=== PATIENT | male | born 1990 | race Caucasian/White ===

== ENCOUNTER 2018-03-08 21:25 | Emergency (ER) | payer SELFPAY ==
[2018-03-08 21:26] VITALS: BP 125/98; PULSE 109; RESP 16; TEMP 36.1; O2SAT 98; BMI 26.4
--- NOTE | 2018-03-08 21:41 | ED.VISSUMM ---
- ER Visit Summary Date of Service: 03/08/18 Chief Complaint: Rash History of Present Illness: The patient is a 27 M with a rash to his bilateral arms. He was exposed to someone with scabies. He feels tired but otherwise has no systemic symptoms. No fevers. Physical Examination: Scaling excoriated rash to his upper extremities, worse on the right and worse in his antecubital fossa. Test Results: None indicated Emergency Department Course and Treatment: Patient will be treated with permethrin. Skin care discussed. Benadryl as needed. Follow-up with primary care. Treatment Plan: As above Disposition: Discharged Impression: 1. Rash This note was generated with [employer] dictation software. It may contain incorrect words, spelling, and punctuation that were not noted in review of the chart prior to signing ED Disposition - Plan for ED Patient: Chief Complaint: Rash Instructions: ED Scabies Prescriptions: Permethrin [Elimite] 60 gm TP X1 #1 tube Referrals: Marshall Barry DO [Primary Care Provider] -
== END 2018-03-08 21:51 | disposition home or self-care (01) ==
LOC: ED 21:46
PROVIDERS: Emergency Provider Emergency Medicine; Family Provider Family Medicine; PCP Family Medicine
DX: R21 Rash and other nonspecific skin eruption (principal); Z72.0 Tobacco use
CPT/HCPCS: 99282

== ENCOUNTER 2020-03-06 20:56 | Emergency (ER) | payer MEDICAID, SELFPAY ==
[2019-10-02 11:43] VITALS: BMI 27.3
[2020-03-06 20:57] VITALS: BP 146/87; PULSE 121; RESP 17; TEMP 36.6; O2SAT 99; BMI 28.8
--- NOTE | 2020-03-06 21:32 | RAD_ITS ---
STUDY: X-RAY - LEFT HAND, ATTENTION FIRST FINGER REASON FOR EXAM: Male, 29 years old. Laceration on distal anterior part of thumb by machbenjy. TECHNIQUE: 3 view(s) of the finger were obtained. COMPARISON: None. FINDINGS: Normal metacarpal head. Normal metacarpophalangeal joint. Normal proximal phalanx. Normal middle phalanx. Normal distal phalanx. Normal proximal interphalangeal joint. Normal distal interphalangeal joint. RAD/Finger(s) Min 2 Views IMPRESSION: Normal x-ray examination of the finger. Electronically Signed: Zach Bryant MD at 21:59 EDT , Service support ,
[2020-03-06] MEDS: Diphth,Pertuss(Acell),Tet Vac 0.5 ML Vial IM (21:58)
[2020-03-06] MEDS: HYDROcodone Bitartrate/Apap 5/325 Tablet PO (21:58)
--- NOTE | 2020-03-06 22:31 | ED.VISSUMM ---
- ER Visit Summary Date of Service: 03/06/20 Chief Complaint: Laceration History of Present Illness: The patient is a [address] Barry. He is right-hand dominant. His tetanus is not up-to-date. Reports that approximately 2 hours ago he was cutting sticks with a machete when he slipped and cut his left thumb. He reports he has an aching pain is 710 at worst and 6 out of 10 currently. Is worsened by movement relieved by rest. Denies any paresthesias distally. Physical Examination: Vitals: Stable. Afebrile. General: Well-nourished and well-developed. Head: Normocephalic atraumatic. Neck: Supple, no lymphadenopathy. No JVD. Nontender. Cardiovascular: Regular rate and rhythm. No murmurs. Respiratory: No respiratory distress. Clear to auscultation bilaterally. Abdominal: Soft, nontender, nondistended, normal bowel sounds. No guarding, rebound, or peritoneal signs. Back: Nontender. Extremities: 3 cm laceration on the dorsal lateral side of the proximal phalanx of his left thumb. This is a flap laceration. There is no active bleeding. He is neurovascular intact distal this. He has normal sensation light touch and two-point discrimination. Skin: Normal color, no rash. Neurologic: Alert and oriented ?3. Cranial nerves II through XII are intact. Normal strength and sensation. Psych: Normal affect. Test Results: Clinical Impression(s) from Imaging Studies Finger X-Ray 03/06/20 21:32 IMPRESSION: Normal x-ray examination of the finger. Electronically Signed: Zach Bryant MD at 21:59 EDT , Service support , Emergency Department Course and Treatment: Patient had his tetanus updated. He was treated with [place] for pain. Had a prolonged discussion with him and he is refused repair of this. Treatment Plan: Patient will be discharged instructions to follow-up with Dr. Barry in 2 days for a wound check. Instructed to keep the area clean, dry, and covered. Return to the emergency department for any worsening symptoms. Disposition: To home in improved and stable condition. Impression: 1. Laceration left thumb, 3 cm, not repaired. This note was generated with [employer] dictation software. It may contain incorrect words, spelling, and punctuation that were not noted in review of the chart prior to signing ED Disposition - Plan for ED Patient: Disposition: Home or Assisted Living Instructions: ED Laceration Small or Superficial Not Stitched Referrals: Marshall Barry DO [Primary Care Provider] - 3-5 Days
== END 2020-03-06 22:59 | disposition home or self-care (01) ==
LOC: ED 21:58
PROVIDERS: Emergency Provider Emergency Medicine; PCP Family Medicine
DX: S61.012A Laceration without foreign body of left thumb without damage to nail, initial encounter (principal); W26.8XXA Contact with other sharp object(s), not elsewhere classified, initial encounter; Y93.9 Activity, unspecified; Y92.9 Unspecified place or not applicable; F17.200 Nicotine dependence, unspecified, uncomplicated
CPT/HCPCS: 73140; 90715; 99281; 99283

== ENCOUNTER 2022-10-26 21:17 | Emergency (ER) | payer MEDICAID, SELFPAY ==
[2022-10-26 21:20] VITALS: BP 144/77; PULSE 92; RESP 18; TEMP 36.6; O2SAT 99; BMI 30.9
--- NOTE | 2022-10-26 21:27 | EKG12_ITS ---
Test Reason : CP Blood Pressure : / mmHG Vent. Rate : 090 BPM Atrial Rate : 090 BPM P-R Int : 142 ms QRS Dur : 096 ms QT Int : 344 ms P-R-T Axes : 039 011 025 degrees QTc Int : 420 ms Normal sinus rhythm with sinus arrhythmia Normal ECG Confirmed by DAVEY CUTLER, TETE ([id number]), senior editor CLIFTON PORRAS ([id number]) on 10/30/2022 12:35:34 PM Referred By: DEDE Confirmed By:TTEE MARISCAL MD
--- NOTE | 2022-10-26 21:28 | EDS_ITS ---
HPI History of Present Illness Chief Complaint: Chest Pain Narrative Narrative: 32-year-old male with no significant past medical history presenting with chest pain. He states it feels like a pinching in the back of his sternum. Patient states he was working around [employer] today. The pain started about 7:30 PM. Patient denies any fever, chills, body aches. Patient denies a cough. Is not short of breath. She has no history of cardiac disease. He is a heavy smoker but denies history of COPD. 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 He describes it as a 4-day event. Apparently was with a friend who is an RN who stated she thought he was having a heart attack. He never got seen for this. He is never followed up for this. 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 No recent travel, recent immobilization, history of DVT/PE, cancer in him, exogenous hormones. PFSH PFSH Home Medications naproxen 500 mg tablet (Naprosyn) 500 mg PO BID PRN pain #20 tabs 10/26/22 [Rx Last Taken Unknown] Allergy/AdvReac Type Severity Reaction Status Date / Time Penicillins Allergy Unknown Verified 10/26/22 21:28 Social History Smoking Status: Current every day smoker tobacco type: cigarettes ROS ROS ED Constitutional Constitutional ED: Denies chills or fever(s) Eyes Eyes: Denies blurry vision or change in vision ENT ENT ED: Denies rhinorrhea or sore throat Cardiovascular Cardiovascular: Reports as per HPI Respiratory/Chest Respiratory/Chest: Denies cough or dyspnea Gastrointestinal Gastrointestinal: Denies abdominal pain or constipation Genitourinary Genitourinary ED: Denies dysuria or hematuria Musculoskeletal Musculoskeletal: Denies arthralgias or back pain Integumentary Denies abscess or Abrasions Neurologic Neurologic: Denies headache(s) or paresthesias Psychiatric Psychiatric: Denies anxiety or depression EXAM Physical Exam Const Vital Signs: 10/26/22 21:20 10/26/22 21:38 10/26/22 21:41 Temperature 97.8 F Temperature Source Temporal Pulse Rate 92 Respiratory Rate 18 Respiratory Effort Normal Blood Pressure 144/77 H Blood Pressure Mean 99 Pulse Ox 99 97 Oxygen Delivery Method Room Air Room Air Positive well nourished General Appearance ED: NAD HEENT Reports moist mucous membranes Eyes PERRL and EOMs intact bilaterally Resp normal respiratory effort and clear to auscultation bilaterally Auscultation: Negative for rales, rhonchi or wheezes Cardio regular rate and regular rhythm GI normal to inspection, nondistended, normoactive bowel sounds Neuro oriented x3 Motor Exam: strength 5/5 throughout Psych mental status grossly normal Skin no rashes or lesions noted Heart Score History: Slightly/Non-Suspicious ECG: Normal Risk Factors: No Risk Factors Troponin: </= Normal Limit Score: 0 MDM MDM MDM Narrative Medical decision making narrative: Patient presenting with retrosternal chest pain. He states he was around mold today and he think this is why he has the pain. He has not had a fever. Does not feel short of breath. No cardiac history. No history of DVT/PE and no risk factors. Vital signs are stable and he is afebrile. Patient given IV Toradol. I do not suspect this is cardiac in nature but I will obtain a CBC to assess for leukocytosis, hemoglobin, platelets, differential. BMP to assess renal function, electrolytes, glucose, anion gap. High-sensitivity troponin and chest x-ray as well as EKG will be obtained as well. EKG is normal sinus rhythm with a ventricular rate of 90 bpm without sign of ischemia. Chest x-ray my int erpretation is no acute cardiopulmonary process. The radiologist interprets this and agrees. CBC shows slight leukocytosis at 13.6 without a left shift. BMP unremarkable. High-sensitivity opponent is 9. Patient HEART score is 0. I do not believe he has a delta troponin. Patient counseled on return precautions. He is given follow-up. Impression: 1. Chest pain Lab Data Attestation: I reviewed the patient's lab results. Labs: Laboratory Results - last 24 hr 10/26/22 10/26/22 21:35 21:35 WBC 13.6 H RBC 4.52 L Hgb 13.8 Hct 42.3 MCV 93.6 MCH 30.5 MCHC 32.6 RDW Std Deviation 45.7 H RDW Coeff of Francia 13.3 Plt Count 295 MPV 10.6 Immature Gran % (Auto) 0.400 Neut % (Auto) 57.2 Lymph % (Auto) 32.1 Charles % (Auto) 8.3 Eos % (Auto) 1.2 Baso % (Auto) 0.8 Absolute Neuts (auto) 7.8 H Absolute Lymphs (auto) 4.35 Nucleated RBC % 0 Sodium 139 Potassium 3.9 Chloride 110 H Carbon Dioxide 27.0 Anion Gap 2 L BUN 28 H Creatinine 1.14 Estim Creat Clear Calc 88.33 Est GFR (MDRD) Af Amer 95 Est GFR (MDRD) Non-Af 78 BUN/Creatinine Ratio 24.6 H Glucose 116 H Calcium 9.2 Troponin I High Sens 9 Radiography Diagnostic Testing: Clinical Impression(s) from Imaging Studies Chest X-Ray 10/26/22 22:10 IMPRESSION: Chest with no acute disease. Electronically Signed: Philip Cordoba MD at 22:25 EDT , Discharge Plan Triage Chief Complaint: Chest Pain ED Provider: Harry Garrido Dx/Rx/DC Orders Instructions: ED Chest Pain, Noncardiac Prescriptions: New naproxen [Naprosyn] 500 mg tablet 500 mg PO BID PRN (Reason: pain) Qty: 20 0RF Primary Care Provider: Care Physician,No Primary Referrals: Tom Garcia MD [Med Staff - Active Staff] - Jael nKox MD [Med Staff - [employer] Maker] - 3-5 Days Disposition Disposition: Home, Self Care
[2022-10-26 21:38] VITALS: O2SAT 97
[2022-10-26 21:43] LABS: Absolute Lymphocyte Count 4.35 X10^3/uL (0.83-4.51); Absolute Neutrophil Count 7.8 X10^3/uL (2.0-7.7); Basophil# 0.11 X10^3/uL; Basophil% 0.8 % (0-1); Eosinophil# 0.16 X10^3/uL; Eosinophils% 1.2 % (0-5); Hematocrit 42.3 % (40-54); Hemoglobin 13.8 g/dL (13.0-16.5); Lymphocyte # 4.35 X10^3/ul (0.83-4.51); Lymphocyte % 32.1 % (19-41); Mean Corp Hgb Conc 32.6 g/dL (32-36); Mean Corpuscular Hgb 30.5 pg (27.0-32.0); Mean Corpuscular Volume 93.6 fL (80-94); Mean Platelet Vol. 10.6 fl (6.2-12.0); Monocyte# 1.12 X10^3/uL; Monocyte% 8.3 % (0-10); NRBC Flagged by Analyzer 0 % (0-5); Neutrophil # 7.76 X10^3/uL (2.7-7.7); Neutrophil % 57.2 % (47-70); Platelet Count 295 K/mm3 (150-450); RBC Distribution Width CV 13.3 % (11.6-14.6); RBC Distribution Width SD 45.7 fl (35.1-43.9); Red Blood Count 4.52 M/mm3 (4.6-6.2); White Blood Count 13.6 K/mm3 (4.4-11.0)
[2022-10-26] MEDS: Ketorolac 15 MG/ML Vial IV (21:43)
--- NOTE | 2022-10-26 22:10 | RAD_ITS ---
INDICATION: chest pain EXAMINATION/TECHNIQUE: X-RAY - XR Chest 1 View COMPARISON: None. Findings: Single frontal view of the chest. LUNG PARENCHYMA: No acute focal airspace disease or mass lesion. PLEURA: No pleural effusion. No pneumothorax. HEART/GREAT VESSELS: Cardiomediastinal silhouette is unremarkable. BONES: Osseous structures are unremarkable for age. RAD/Chest 1 View (Portable) IMPRESSION: Chest with no acute disease. Electronically Signed: Philip Cordoba MD at 22:25 EDT ,
[2022-10-26 22:21] LABS: Anion Gap 2 (5-15); BUN 28 mg/dL (7-18); BUN/Creat Ratio 24.6 RATIO (10-20); Calcium,Total 9.2 mg/dL (8.5-10.1); Chloride 110 mmol/L (98-107); Creatinine, Serum 1.14 mg/dL (0.70-1.30); EST Glomerular Filtration Rate 78 mL/min (>60); Est Glom Filt Rate - Afr Amer 95 mL/min (>60); Estimated Creatinine Clearance 88.33 ml/min; Glucose 116 mg/dL (74-106); Potassium 3.9 mmol/L (3.5-5.1); Sodium Level 139 mmol/L (136-145); Troponin-I HS (w/2H Reflex) 9 pg/mL (3.0-78.0)
[2022-10-26 23:38] LABS: Reflex Troponin-HS? (from REC) Y
== END 2022-10-26 23:21 | disposition home or self-care (01) ==
PROVIDERS: Emergency Provider Student in an Organized Health Care Education/Training Program; Visit Provider Student in an Organized Health Care Education/Training Program
DX: R07.9 Chest pain, unspecified (principal); F17.210 Nicotine dependence, cigarettes, uncomplicated
CPT/HCPCS: 71045; 80048; 84484; 85025; 93005; 96374; 99284; A4216